=== PATIENT | male | born 1955 | race Caucasian/White ===

== ENCOUNTER 2019-03-03 09:56 | Inpatient (IN) | payer BC ==
[2019-03-03] MEDS: TRANEXAMIC ACID 1GM/100ML(PMX) 100 ML IVPB ×2 (06:00→15:55)
[2019-03-03] MEDS: SOD CHLORIDE 0.9% 100 ML, TRANEXAMIC ACID 3,000 MG IRR (06:00)
[2019-03-03] MEDS: CEFAZOLIN 2 GM/50 ML (PMX) 50 ML IVPB (06:00)
[2019-03-03] MEDS: GABAPENTIN 300 MG CAP PO ×2 (10:45→20:20)
[2019-03-03] MEDS: DEXAMETHASONE 1 MG TAB PO (10:45)
[2019-03-03] MEDS: LACTATED RINGER'S 1,000 ML IV ×3 (10:46→20:24)
[2019-03-03] MEDS ORDERED: CEFAZOLIN 1 GM INJ (11:07)
[2019-03-03] MEDS ORDERED: ROCURONIUM 50 MG INJ ×2 (11:07→12:30)
[2019-03-03] MEDS ORDERED: PROPOFOL 20 ML (11:07)
[2019-03-03] MEDS ORDERED: ROPIVACAINE 0.5 % 30 ML VIAL (11:29)
[2019-03-03] MEDS ORDERED: FENTAnyl 50 MCG/ML VIAL (11:29)
[2019-03-03] MEDS ORDERED: MIDAZOLAM 1 MG/ML 2 ML INJ (11:29)
[2019-03-03] MEDS ORDERED: HETASTARCH 6% NACL 500 ML BAG (12:30)
[2019-03-03] MEDS ORDERED: EPHEDrine 25 MG/5 ML SYG (12:30)
[2019-03-03] MEDS ORDERED: PHENYLephrine (100 MCG/ML) 10ML SYG (12:30)
[2019-03-03] MEDS ORDERED: DESFLURANE 15 MIN (12:30)
[2019-03-03] MEDS ORDERED: THROMBIN 5000 UNIT (RECOTHROM) VIAL (13:02)
[2019-03-03] MEDS ORDERED: CA CHLORIDE 10% 10 ML SYRINGE (13:03)
[2019-03-03] MEDS ORDERED: TRANEXAMIC ACID 1GM/100ML(PMX) 200 ML (13:03)
[2019-03-03] MEDS ORDERED: oxyCODONE 5 MG TAB PO ×5 (13:30→15:00)
[2019-03-03] MEDS ORDERED: HYDROmorphONE 1 MG/ML SYG IV ×2 (13:30→15:00)
[2019-03-03] MEDS ORDERED: ZOLPIDEM 5 MG TAB PO ×2 (13:30→15:00)
[2019-03-03] MEDS ORDERED: LOPERAMIDE 2 MG CAP PO (13:30)
[2019-03-03] MEDS ORDERED: NACL 0.9% 3 ML SYG IV ×2 (13:30→15:00)
[2019-03-03] MEDS ORDERED: MAGNESIUM HYDROXIDE 30ML CUP PO ×2 (13:30→15:00)
[2019-03-03] MEDS ORDERED: KETOROLAC 15 MG INJ IV (13:30)
[2019-03-03] MEDS ORDERED: DIPHENHYDRAMINE 50 MG INJ IV ×4 (13:30→15:00)
[2019-03-03] MEDS ORDERED: ONDANSETRON 4 MG INJ IV ×4 (13:30→15:00)
[2019-03-03] MEDS: TRANEXAMIC ACID 1GM/100ML(PMX) 100 ML (14:00)
[2019-03-03] MEDS: BACITRACIN 50000 UNITS INJ (14:17)
[2019-03-03] MEDS: POLYMYXIN B 500000 UNIT INJ (14:17)
[2019-03-03] MEDS: BUPIVACAINE 0.5% (SDV) 30 ML, morphine SULFATE (PF) 8 MG, EPINEPHrine 0.3 MG, KETOROLAC... IRR (14:18)
[2019-03-03] MEDS ORDERED: NALBUPHINE HCL (10 MG/1 ML) INJ IV (14:30)
[2019-03-03] MEDS ORDERED: EPHEDrine 25 MG/5 ML SYG IV (14:30)
[2019-03-03] MEDS ORDERED: ACETAMINOPHEN 500 MG TAB PO ×2 (14:30→18:00)
[2019-03-03] MEDS ORDERED: METOCLOPRAMIDE 10 MG INJ IV (14:30)
[2019-03-03] MEDS ORDERED: hydrALAzine 20 MG INJ IV (14:30)
[2019-03-03] MEDS ORDERED: HYDROCODONE/APAP (5/325) TAB PO (14:30)
[2019-03-03] MEDS ORDERED: HYDROmorphONE 1 MG/5 ML IV SYRINGE IV ×3 (14:30)
[2019-03-03] MEDS ORDERED: KETOROLAC 30 MG INJ IV (14:30)
[2019-03-03] MEDS ORDERED: LABETALOL HCL 20MG INJ IV (14:30)
[2019-03-03] MEDS ORDERED: morphine 2 MG INJ IV ×2 (14:30)
[2019-03-03] MEDS ORDERED: NALOXONE (0.4 MG/ML) INJ IV (14:30)
[2019-03-03] MEDS ORDERED: MEPERIDINE 25 MG INJ IV (14:30)
[2019-03-03] MEDS ORDERED: OXYCODONE/ACETAMINOPHEN (5/325) TAB PO ×2 (14:30)
[2019-03-03] MEDS ORDERED: FENTAnyl 50 MCG/ML VIAL IV ×3 (14:30)
[2019-03-03] MEDS ORDERED: HYDROmorphONE 0.5 MG/0.5 ML SYG IV ×2 (14:30)
[2019-03-03] MEDS ORDERED: KETOROLAC 30 MG INJ (14:45)
[2019-03-03] MEDS ORDERED: GLYCOPYRROLATE 0.4 MG INJ ×2 (14:45)
[2019-03-03] MEDS ORDERED: ONDANSETRON 4 MG INJ (14:45)
[2019-03-03] MEDS ORDERED: METOCLOPRAMIDE 10 MG INJ (14:45)
[2019-03-03] MEDS ORDERED: NEOSTIGMINE 3 MG/3 ML SYRINGE (14:45)
[2019-03-03] MEDS ORDERED: DEXAMETHASONE 4 MG/ML 5 ML INJ (14:45)
[2019-03-03 15:17] LABS: ADD MAN DIFF? NO
[2019-03-03 15:18] LABS: BASOPHIL # 0.1 10^3/ul (0.0-0.1); BASOPHILS % 0.7 % (0.0-2.0); EOSINOPHILS % 0.4 % (0.0-7.0); HEMATOCRIT 35.8 % (42.0-52.0); LYMPHOCYTES % 13.8 % (15.0-51.0); MEAN CORPUSCULAR HGB CONC 33.5 g/dl (32.0-37.0); MEAN CORPUSCULAR VOLUME 92.5 fl (82.0-101.0); MEAN PLATELET VOLUME 10.2 fl (7.4-10.4); MONOCYTE # 0.2 10^3/ul (0.3-0.9); MONOCYTES % 2.4 % (0.0-11.0); NEUTROPHIL # 6.1 10^3/ul (1.6-7.5); NEUTROPHILS % 82.3 % (39.0-77.0); PLATELET COUNT 151 10^3/UL (140-415); RED BLOOD COUNT 3.87 10^6/ul (4.70-6.10); RED CELL DISTRIBUTION WIDTH 12.4 % (11.5-14.5)
[2019-03-03 15:18] LABS: WHITE BLOOD COUNT 7.4 10^3/ul (4.8-10.8)
[2019-03-03] MEDS: CEFAZOLIN 1 GM/50 ML (PMX) 50 ML IVPB ×3 (16:05→23:59)
[2019-03-03] MEDS: ACETAMINOPHEN 1000MG/100ML IV 100 ML IVPB ×2 (16:07→23:59)
[2019-03-03] MEDS: DEXAMETHASONE 2 MG TAB PO ×3 (17:52→23:59)
[2019-03-03] MEDS: ATORVASTATIN 40 MG TAB PO (20:20)
[2019-03-03] MEDS: SENNA/DOCUSATE NA (8.6MG/50MG) TAB PO (20:20)
[2019-03-03] MEDS ORDERED: GABAPENTIN 300 MG CAP PO (21:00)
[2019-03-03] MEDS ORDERED: SENNA/DOCUSATE NA (8.6MG/50MG) TAB PO (21:00)
[2019-03-04 05:07] LABS: ADD MAN DIFF? NO
[2019-03-04 05:10] LABS: ABNORMAL IP MESSAGE 1; BASOPHILS % 0.1 % (0.0-2.0); HEMATOCRIT 33.3 % (42.0-52.0); HEMOGLOBIN 10.9 g/dl (14.0-18.0); LYMPHOCYTES # 0.6 10^3/ul (0.8-2.9); LYMPHOCYTES % 5.2 % (15.0-51.0); MEAN CORPUSCULAR HEMOGLOBIN 30.5 pg (29.0-33.0); MEAN CORPUSCULAR HGB CONC 32.7 g/dl (32.0-37.0); MEAN CORPUSCULAR VOLUME 93.3 fl (82.0-101.0); MEAN PLATELET VOLUME 10.8 fl (7.4-10.4); MONOCYTE # 0.4 10^3/ul (0.3-0.9); MONOCYTES % 3.3 % (0.0-11.0); NEUTROPHIL # 10.1 10^3/ul (1.6-7.5); NEUTROPHILS % 90.6 % (39.0-77.0); PLATELET COUNT 147 10^3/UL (140-415); POSITIVE DIFF @See below; RED BLOOD COUNT 3.57 10^6/ul (4.70-6.10); RED CELL DISTRIBUTION WIDTH 12.7 % (11.5-14.5)
[2019-03-04 05:10] LABS: WHITE BLOOD COUNT 11.2 10^3/ul (4.8-10.8)
[2019-03-04] MEDS: DEXAMETHASONE 2 MG TAB PO ×5 (05:36→11:43)
[2019-03-04] MEDS: LACTATED RINGER'S 1,000 ML IV (05:49)
[2019-03-04] MEDS: CEFAZOLIN 1 GM/50 ML (PMX) 50 ML IVPB (05:50)
[2019-03-04] MEDS: ACETAMINOPHEN 1000MG/100ML IV 100 ML IVPB (05:52)
[2019-03-04] MEDS: NIFEdipine (XL) 30 MG TAB PO (09:00)
[2019-03-04] MEDS: LOSARTAN 50 MG TAB PO (09:00)
[2019-03-04] MEDS: SENNA/DOCUSATE NA (8.6MG/50MG) TAB PO (09:47)
[2019-03-04] MEDS: ASPIRIN (EC) 325 MG TAB PO (09:48)
[2019-03-04] MEDS: ACETAMINOPHEN 500 MG TAB PO (11:43)
[2019-03-04] MEDS: oxyCODONE 5 MG TAB PO (14:28)
[2019-03-05] MEDS ORDERED: MAGNESIUM HYDROXIDE 30ML CUP PO (21:00)
== END 2019-03-04 15:00 | disposition home or self-care (01) | DRG 470 ==
LOC: REC 09:56 → MS1 17:00
PROVIDERS: Orthopaedic Surgery
PROC: 0SR904A Replacement of Right Hip Joint with Ceramic on Polyethylene Synthetic Substitute, Uncemented, Open Approach (ICD-10-PCS; principal; 2019-03-03 12:00)
DX: M16.11 Unilateral primary osteoarthritis, right hip (principal); I10 Essential (primary) hypertension; E78.5 Hyperlipidemia, unspecified
CPT/HCPCS: 72170; 73530; 85025; 86999; 87086; 88304; 88311; 97116; 97161; 97530